=== PATIENT | male | born 2000 | race Caucasian/White ===

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

== ENCOUNTER 2020-03-18 19:27 | Emergency (ER) | payer MEDICAID, OTHER ==
[~2020-03-18] VITALS: Ht 170.2 cm; Wt 61.2 kg
[2020-03-18 19:57] VITALS: BP 119/79
--- NOTE | 2020-03-18 19:57 | NUR ---
20 Y/O MALE PRESENTED TO ED C/O SUDDEN SHARP LT TESTICULAR PAIN X 5 HRS . PT STATES HE HAS HAD THIS PAIN BEFORE BUT NEVER THIS BAD. PT DENIES ANY TRAUMA OR INJURY TO SITE OF PAIN. PT STATES HE WAS JUST SITTING ON THE COUCH AND HE HAD AN INTENSE SHARP PAIN TO LT TESTICLE RADIATING TO LOWER ABD. PT STATES PAIN INCREASES WHILE SITTING. PT DENIES HEMATURIA , DYSURIA , N/V/D. NO OBSERVED TESTICULAR SWELLING. PMH: DENIES NKA
--- NOTE | 2020-03-18 20:03 | NUR ---
PT AMBULATED TO BED #5
--- NOTE | 2020-03-18 20:04 | NUR ---
PT RESTING IN BED, LOCKED AND IN LOWEST POSITION ,HOB ELEVATED, SIDE RAIL X2 FOR PT SAFETY. RR EVEN AND UNLABORED, VSS , NO ACUTE DISTRESS NOTED AT THIS TIME.
--- NOTE | 2020-03-18 20:28 | NUR ---
Ultrasound at bedside.
--- NOTE | 2020-03-18 21:12 | NUR ---
Dr. Haile examining patient.
--- NOTE | 2020-03-18 21:13 | NUR ---
Rylee bell in [facility] - 03/18/20 at [address] Haile examining patient.
[2020-03-18] MEDS ORDERED: cefTRIAXone 250 MG in LIDOCAINE MPF 1% 0.9 ML IM ONE (21:35)
[2020-03-18] MEDS ORDERED: KETOROLAC 60 MG/2 ML VIAL IM ONE (21:35)
[2020-03-18] MEDS ORDERED: AZITHROMYCIN 250 MG TAB PO ONE (21:35)
[2020-03-18] MEDS ORDERED: cefTRIAXone 250 MG VIAL ONE (21:39)
[2020-03-18] MEDS ORDERED: LIDOCAINE MPF 1% 5 ML ONE (21:40)
[2020-03-18 22:02] VITALS: BP 119/79
--- NOTE | 2020-03-18 22:02 | NUR ---
Patient discharged with v/s stable. Written and verbal after care instructions given and explained. Patient alert, oriented and verbalized understanding of instructions. Ambulatory with steady gait. All questions addressed prior to discharge. ID band removed. Patient advised to follow up with PMD. Rx of MOTRIN & DOXYCYCLINE given. Patient educated on indication of medication including possible reaction and side effects. Opportunity to ask questions provided and answered.
== END 2020-03-18 22:02 | disposition home or self-care (01) ==
LOC: MED 19:27
DX: N50.812 Left testicular pain (principal); N45.2 Orchitis; F12.90 Cannabis use, unspecified, uncomplicated
CPT/HCPCS: 76870; 96372; 99284; J0696; J1885; J2001; Q0092

== ENCOUNTER 2020-05-01 14:25 | Emergency (ER) | payer OTHER, SELFPAY ==
[~2020-05-01] VITALS: Ht 170.2 cm; Wt 77.6 kg
[2020-05-01 14:35] VITALS: BP 125/74
[2020-05-01 16:14] VITALS: BP 118/71
== END 2020-05-01 16:14 | disposition home or self-care (01) ==
LOC: MED 14:25
DX: R05 Cough (principal)
CPT/HCPCS: 36600; 71045; 82803; 99284

== ENCOUNTER 2020-06-05 03:54 | Emergency (ER) | payer OTHER, SELFPAY ==
[~2020-06-05] VITALS: Ht 172.7 cm; Wt 63.5 kg
[2020-06-05 03:59] VITALS: BP 107/74
[2020-06-05] MEDS ORDERED: ACETAMINOPHEN EXTRA STRENGTH 500 MG TAB PO ONE (04:15)
[2020-06-05] MEDS ORDERED: KETOROLAC 15 MG/ML VIAL IVP ONE (04:15)
[2020-06-05 04:42] LABS: APPEARANCE,URINE CLEAR (CLEAR); BILIRUBIN,URINE NEGATIVE (NEGATIVE); BLOOD, URINE NEGATIVE (NEGATIVE); COLOR,URINE YELLOW (YELLOW); LEUKOCYTE ESTERASE ,URINE NEGATIVE (NEGATIVE); NITRITE, URINE NEGATIVE (NEGATIVE); UGLUCOSE NEGATIVE (NEGATIVE)
[2020-06-05 04:54] LABS: HEMOGLOBIN 14.2 g/dL (12.0-18.0); MEAN CORPUSCULAR HEMOGLOBIN 32 pg (27-31)
[2020-06-05 04:58] LABS: BASOPHILS % (AUTO) 0.5 % (0.0-2.0); EOSINOPHILS % (AUTO) 0.2 % (0.0-4.0); LYMPHOCYTES # (AUTO) 0.9 K/uL (2.0-11.5); MEAN CORPUSCULAR HGB CONC 34 g/dL (33-37); MEAN CORPUSCULAR VOLUME 94.5 fL (80-94); MONOCYTES # (AUTO) 0.5 K/uL (0.8-1.0); MONOCYTES % (AUTO) 6.8 % (1.7-9.3); NEUTROPHILS # (AUTO) 6.4 K/uL (1.8-7.7); PLATELET COUNT (AUTO) 218 K/uL (140-450); RED BLOOD CELL COUNT(AUTO) 4.45 MIL/uL (4.20-6.10); RED CELL DISTRIBUTION WIDTH 13.4 % (11.6-13.7); WHITE BLOOD COUNT (AUTO) 7.8 K/uL (4.5-11.0)
[2020-06-05 05:06] LABS: BARBITURATE, URINE NEGATIVE ng/ml (NEG <=200); BENZODIAZEPINE, URINE NEGATIVE ng/mL (NEG <=200); CANNABINOID, URINE POSITIVE ng/mL (NEG <=50); COCAINE, URINE NEGATIVE ng/mL (NEG <=300); OPIATE, URINE NEGATIVE ng/mL (NEG <=2000); PHENCYCLIDINE SCREEN,URINE NEGATIVE ng/mL (NEG <=25)
[2020-06-05 05:07] LABS: ALBUMIN 4.1 g/dL (3.4-5.0); CARBON DIOXIDE 30.6 mmol/L (21-32); CREATININE 0.8 mg/dL (0.6-1.3); POTASSIUM 3.6 mmol/L (3.5-5.1); TOTAL BILIRUBIN 0.3 mg/dL (0.0-1.0)
[2020-06-05 05:09] LABS: NEUTROPHILS % (AUTO) 81.5 % (42.2-75.2)
[2020-06-05 07:14] VITALS: BP 111/66
== END 2020-06-05 07:15 | disposition home or self-care (01) ==
LOC: MED 03:54
DX: R10.9 Unspecified abdominal pain (principal); F12.90 Cannabis use, unspecified, uncomplicated
CPT/HCPCS: 36415; 80053; 80305; 81003; 83690; 85025; 96374; 99283; J1885

== ENCOUNTER 2020-06-11 17:16 | Emergency (ER) | payer OTHER, SELFPAY ==
[~2020-06-11] VITALS: Ht 169.5 cm; Wt 58.1 kg
[2020-06-11 17:20] VITALS: BP 110/65
--- NOTE | 2020-06-11 17:27 | NUR ---
amb to bed 06
[2020-06-11 17:40] VITALS: BP 110/65
--- NOTE | 2020-06-11 17:52 | NUR ---
20 YO MALE COMES FROM HOME PRESENTS TO ED C/C SHARP/INTERMITTEN RECTAL PAIN 7/10 AND RECTAL BLEED WITH BM X2 YEARS. PT STATES "I THINK I HAVE HEMORRHOIDS, I FELT A SQUISHY PEICE OF SKIN OUTSIDE OF MY RECTUM". PT STETS HE ALSO EXPERIENCES FREQUENT CONSTIPATION. PT STATES BLEEDING HAS INCREAESED OVER THE LAST YEAR AND NOW OCCURS EVEN W/O BM. PT DENIES TAKING ANY OTC MEDS, ADMITS TO SMOKING MARIJUANA. LBM: TODAY, NORMAL ALSO C/O LEFT SHOULDER X 3 YEARS, NO INJURY HX- DENIES
--- NOTE | 2020-06-11 18:16 | NUR ---
Patient discharged with v/s stable. Written and verbal after care instructions given and explained. Patient alert, oriented and verbalized understanding of instructions. Ambulatory with steady gait. All questions addressed prior to discharge. ID band removed. Patient advised to follow up with PMD. Rx of Hydrocortisone ointment, Hydrocortisone rectal suppository, and Colace given. Patient educated on indication of medication including possible reaction and side effects. Opportunity to ask questions provided and answered.
== END 2020-06-11 18:16 | disposition home or self-care (01) ==
LOC: MED 17:16
DX: K59.00 Constipation, unspecified (principal); K64.9 Unspecified hemorrhoids; F12.90 Cannabis use, unspecified, uncomplicated
CPT/HCPCS: 99282; 99283